=== PATIENT | female | born 1965 | race Caucasian/White ===

== ENCOUNTER 2017-08-12 13:08 | Day surgery (SDC) | payer BC ==
[~2017-08-12 13:08] MED LIST: Lactated Ringers 1,000 ML IV SCH; Sodium Chloride 0.9% 10 ML Syringe FLUSH PRN
[2017-08-12] MEDS ORDERED: fentaNYL 100 MCG/2 ML SDV ONE ×2 (14:00→14:15)
[2017-08-12] MEDS ORDERED: Midazolam 1 MG/ML 2 ML SDV ONE ×3 (14:00→14:15)
[2017-08-12] MEDS ORDERED: Propofol 200 MG/20 ML SDV ONE ×3 (14:01→14:15)
--- NOTE | 2017-08-12 14:13 | PCM.HPR ---
H & P Addendum review - H & P Addendum Review Date of Original H & P: 07/14/17 Date Reviewed: 08/12/17 Time Reviewed: 14:12 Patient was Examined: No Changes
--- NOTE | 2017-08-12 14:47 | PCM.OPNOTE ---
- General Post-Op/Procedure Note Date of Surgery/Procedure: 08/12/17 Operative Procedure(s): EGJ. Colonoscopy Findings: Both Normal Pre Op Diagnosis: Anemia Post-Op Diagnosis: Same Anesthesia Technique: MAC Primary Surgeon: Chato Sheldon Anesthesia Provider: Piedad Bar EBL in mLs: 0 Complications: None Condition: Good Free Text/Narrative:: Intake & Output 08/11/17 08/12/17 08/12/17 22:59 06:59 14:59 Intake Total 700 Balance 700
[2017-08-12 16:51] VITALS: BP 112/66
--- NOTE | 2017-08-12 22:00 | OR ---
Date of Procedure: 08/12/2017 PREOPERATIVE DIAGNOSIS: Anemia. POSTOPERATIVE DIAGNOSIS: Anemia. PROCEDURES PERFORMED: 1. Colonoscopy. 2. Esophagogastrojejunoscopy. ANESTHESIA: IV sedation. DESCRIPTION OF PROCEDURE: The patient was brought to the procedure room, where she was placed on her left side and IV sedation administered. Digital rectal exam was performed, which was normal. Colonoscope was inserted and advanced to the level of the cecum without difficulty. Cecal position was confirmed by identifying the appendiceal lumen and ileocecal valve. Prep was good, and surfaces were well visualized. Upon withdrawing the scope, the ascending, transverse, and descending colon were normal in appearance. Sigmoid colon and rectum were normal. Retroflexion was normal. Air was removed, and the scope withdrawn. The patient tolerated this portion of the procedure well. Next, upper endoscopy was performed after the oral bite block was placed, and the upper endoscope advanced into the esophagus under direct vision without difficulty. Vocal cords were viewed and were normal. The scope was advanced through the esophagus into the gastric remnant. The gastrojejunostomy anastomosis appeared normal. The jejunal limb was followed for approximately 30 cm, and all appeared normal. The smaller remnant from the other J limb was followed and also appeared normal. There was no source of bleeding. Squamocolumnar junction appeared normal. Air was removed, and the scope slowly withdrawn through the esophagus, which all appeared normal. The patient tolerated the procedure well and returned to recovery in stable condition. The patient has a followup appointment with her provider next week. There is no apparent GI source for her anemia. YOLANDA NELSON MD /[id number]
== END 2017-08-12 16:03 | disposition home or self-care (01) ==
LOC: LL.SDS 13:08
PROVIDERS: ATTEND Surgery
DX: D64.9 Anemia, unspecified (principal); F41.9 Anxiety disorder, unspecified; F32.9 Major depressive disorder, single episode, unspecified; I10 Essential (primary) hypertension; E11.9 Type 2 diabetes mellitus without complications; E03.9 Hypothyroidism, unspecified; E78.5 Hyperlipidemia, unspecified; K21.9 Gastro-esophageal reflux disease without esophagitis; G89.29 Other chronic pain; M54.5 Low back pain; Z98.84 Bariatric surgery status; Z88.0 Allergy status to penicillin; Z90.710 Acquired absence of both cervix and uterus; Z79.899 Other long term (current) drug therapy
CPT/HCPCS: 43235; 45378; J2250; J2704; J3010; J7120